=== PATIENT | male | born 1985 | race Caucasian/White ===

== ENCOUNTER 2018-03-24 23:05 | Emergency (ER) | payer MEDICARE ==
[~2018-03-24] VITALS: Ht 182.9 cm; Wt 88.5 kg
[2018-03-24] MEDS ORDERED: AZITHROMYCIN 250 MG TAB PO ONE (23:15)
[2018-03-24] MEDS ORDERED: CEFTRIAXONE SOD 250 MG VIAL IM ONE (23:15)
[2018-03-24] MEDS ORDERED: AZITHROMYCIN 250 MG TAB ONE (23:16)
[2018-03-24] MEDS ORDERED: CEFTRIAXONE SOD 250 MG VIAL ONE (23:16)
== END 2018-03-24 23:52 | disposition home or self-care (01) ==
LOC: ER 23:05
DX: R30.0 Dysuria (principal); A54.01 Gonococcal cystitis and urethritis, unspecified
CPT/HCPCS: 96372; 99283; J0696

== ENCOUNTER 2022-10-09 00:43 | Emergency (ER) | payer OTHER ==
[~2022-10-09] VITALS: Ht 182.9 cm; Wt 88.5 kg
[2022-10-09] MEDS ORDERED: KETOROLAC TROMETHAMINE 60 MG/2 ML VIAL IM ONE (01:15)
== END 2022-10-09 01:47 | disposition home or self-care (01) ==
LOC: ER 00:50
DX: M54.50 Low back pain, unspecified (principal); G89.29 Other chronic pain
CPT/HCPCS: 99282; J1885

== ENCOUNTER 2024-05-30 10:43 | Emergency (ER) | payer OTHER ==
[~2024-05-30] VITALS: Ht 182.9 cm; Wt 88.5 kg
[2024-05-30 11:00] VITALS: TEMP 98.1
[2024-05-30 11:28] LABS: BASOPHILS % 0.2 % (0.0-1.0); EOSINOPHILS # (AUTO) 0.2 (0.0-0.4); EOSINOPHILS % 1.1 % (0.0-6.0); HEMATOCRIT 39.9 % (38.2-49.6); HEMOGLOBIN 13.8 g/dL (14.0-18.0); LYMPHOCYTES # (AUTO) 0.6 (1.0-3.2); LYMPHOCYTES % 3.6 % (18.0-39.1); MEAN CORPUSCULAR HEMOGLOBIN 33.2 pg (28-32); MEAN CORPUSCULAR HGB CONC 34.6 g/dL (31-35); MEAN CORPUSCULAR VOLUME 95.9 fL (81-99); MONOCYTES # (AUTO) 0.9 (0.2-0.8); NEUTROPHILS # (AUTO) 15.3 (2.1-6.9); NEUTROPHILS % 89.2 % (38.7-80.0); PLATELET COUNT 207 x10e3/uL (140-360); RED BLOOD COUNT 4.16 x10e6/uL (4.3-5.7); RED CELL DISTRIBUTION WIDTH 12.9 % (11.7-14.4); WHITE BLOOD COUNT 17.15 x10e3/uL (4.8-10.8)
[2024-05-30 11:47] LABS: INR 1.07; PROTHROMBIN TIME 14.6 seconds (11.9-14.5)
[2024-05-30 11:48] LABS: PARTIAL THROMBOPLASTIN TIME 47.5 seconds (23.8-35.5)
[2024-05-30 11:54] LABS: ALBUMIN 2.8 g/dL (3.5-5.0); ALBUMIN/GLOBULIN RATIO 0.7 (0.8-2.0); BILIRUBIN,TOTAL 0.3 mg/dL (0.2-1.2); CREATININE, SERUM 0.88 mg/dL (0.72-1.25); TOTAL PROTEIN 6.7 g/dL (6.5-8.1)
[2024-05-30] MEDS: SODIUM CHLORIDE 0.9% 1000ML 1,000 ML IV STA (11:59)
[2024-05-30] MEDS: Morphine 4mg INJECTION 4 MG/ML INJ IV STA (12:00)
[2024-05-30] MEDS: ONDANSETRON HCL INJ 2MG/ML 2ML 2 MG/ML VIAL IV STA (12:00)
[2024-05-30] MEDS ORDERED: IOPAMIDOL 370 MG/ML 100 ML INFUS..BTL INJ ONE (12:33)
[2024-05-30 14:15] VITALS: PULSE 94; RESP 18
[2024-05-30] MEDS ORDERED: LEVOFLOXACIN500 MG PO (14:18)
[2024-05-30] MEDS ORDERED: CLINDAMYCIN HC150 MG PO (14:18)
[2024-05-30 14:33] LABS: CLARITY,URINE CLEAR (CLEAR); COLOR,URINE YELLOW (YELLOW); GLUCOSE, URINE NEGATIVE (NEGATIVE); KETONES,URINE NEGATIVE (NEGATIVE); LEUKOCYTE ESTERASE ,URINE NEGATIVE (NEGATIVE); NITRITE,URINE NEGATIVE (NEGATIVE); PH,URINE 7 (5 - 7); PROTEIN,URINE DIPSTICK NEGATIVE (NEGATIVE)
[2024-05-30 14:34] LABS: AMPHETAMINES SCREEN,URINE POSITIVE (NEGATIVE); BENZODIAZEPINES SCREEN,URINE NEGATIVE (NEGATIVE); BILIRUBIN,URINE NEGATIVE (NEGATIVE); CANNABINOIDS SCREEN,URINE NEGATIVE (NEGATIVE); METHADONE SCREEN, URINE NEGATIVE (NEGATIVE); OPIATES SCREEN,URINE POSITIVE (NEGATIVE); PHENCYCLIDINE SCREEN,URINE NEGATIVE (NEGATIVE); URINE UROBILINOGEN 0.2 mg/dL (0.2 - 1)
[2024-05-30 15:00] VITALS: BP 128/84; PULSE 84; RESP 18; TEMP 98.8; O2SAT 98
== END 2024-05-30 15:02 | disposition home or self-care (01) ==
LOC: ER 10:45
DX: L02.416 Cutaneous abscess of left lower limb (principal); V86.59XA Driver of other special all-terrain or other off-road motor vehicle injured in nontraffic accident, initial encounter; Y92.89 Other specified places as the place of occurrence of the external cause; I10 Essential (primary) hypertension; M06.9 Rheumatoid arthritis, unspecified; M19.90 Unspecified osteoarthritis, unspecified site
CPT/HCPCS: 36415; 70450; 71260; 72125; 73552; 73562; 73610; 73701; 74177; 80053; 80307; 81001; 83605; 85025; 85610; 85730; 87040; 93971; 99284; J2270; J2405; J2543; J7030; Q9967